=== PATIENT | male | born 1965 | race Caucasian/White ===

== ENCOUNTER → 2017-02-13 | Outpatient (CLI) | payer MEDICARE ==
[~2017-02-13] MED LIST: DEXI60CA2 PO; LIDOCAINE 2% MDV 20 ML VIAL As Ordered ONE; LISI-538 PO; NS 1,000 ML IV ONE; PROPOFOL 200 MG/20 ML VIAL As Ordered ONE
--- NOTE | 2017-02-13 15:11 | ROOR ---
Patient Name: Andrew Edgar Procedure Date: 02/13/2017 2:37 PM Date of : 1965 Age: 51 Room: [facility] Gender: Male Note Status: Finalized Procedure: Upper GI endoscopy Indications: Surveillance for malignancy due to personal history of Ng's esophagus Providers: Chris KONG MD Referring MD: DIANE CHANEY NP Requesting Provider: Medicines: Monitored Anesthesia Care Complications: No immediate complications. Procedure: Pre-Anesthesia Assessment: - The heart rate, respiratory rate, oxygen saturations, blood pressure, adequacy of pulmonary ventilation, and response to care were monitored throughout the procedure. The Endoscope was introduced through the mouth, and advanced to the second part of duodenum. The upper GI endoscopy was accomplished without difficulty. The patient tolerated the procedure well. Findings: There were esophageal mucosal changes secondary to established long-segment Ng's disease present in the lower third of the esophagus. The maximum longitudinal extent of these mucosal changes was 5 cm in length. This was biopsied with a cold forceps for histology. A medium-sized hiatal hernia was present. The exam of the stomach was otherwise normal. The examined duodenum was normal. Impression: - Esophageal mucosal changes secondary to established long-segment (5 cm) Ng's disease from 31 to 26 cm from incisors. Biopsied. - Medium-sized hiatal hernia. - Normal examined duodenum. Recommendation: - Telephone endoscopist for pathology results in 2 weeks. - Continue present medications. - Repeat upper endoscopy in 3 years for surveillance. Chris Kong MD Chris KONG MD 02/13/2017 3:11:08 PM This report has been signed electronically. Number of Addenda: 0 Note Initiated On: 02/13/2017 2:37 PM Estimated Blood Loss: Estimated blood loss: none.
--- NOTE | 2017-02-13 15:15 | ROOR ---
Patient Name: Andrew Edgar Procedure Date: 02/13/2017 2:38 PM Date of : 1965 Age: 51 Room: [facility] Gender: Male Note Status: Finalized Procedure: Colonoscopy Indications: High risk colon cancer surveillance: Personal history of colonic polyps, Last colonoscopy: March 2013 Providers: Chris KONG MD Referring MD: DIANE CHANEY NP Requesting Provider: Medicines: Monitored Anesthesia Care Complications: No immediate complications. Procedure: Pre-Anesthesia Assessment: - The heart rate, respiratory rate, oxygen saturations, blood pressure, adequacy of pulmonary ventilation, and response to care were monitored throughout the procedure. The Colonoscope was introduced through the anus and advanced to the cecum, identified by appendiceal orifice and ileocecal valve. The colonoscopy was performed without difficulty. The patient tolerated the procedure well. Findings: The perianal and digital rectal examinations were normal. A diminutive polyp was found in the cecum. The polyp was sessile. The polyp was removed with a cold snare. Resection and retrieval were complete. Internal hemorrhoids were found during retroflexion. The hemorrhoids were moderate. The exam was otherwise without abnormality. Impression: - One diminutive polyp in the cecum, removed with a cold snare. Resected and retrieved. - Internal hemorrhoids. - The examination was otherwise normal. Recommendation: - Repeat colonoscopy in 5 years for surveillance. - Telephone endoscopist for pathology results in 2 weeks. Chris Kong MD Chris KONG MD 02/13/2017 3:15:16 PM This report has been signed electronically. Number of Addenda: 0 Note Initiated On: 02/13/2017 2:38 PM Estimated Blood Loss: Estimated blood loss: none.
[2017-02-13 15:30] VITALS: BP 147/97
== END | disposition home or self-care (01) ==
LOC: M OPP 12:06
PROVIDERS: ATTEND Internal Medicine Gastroenterology
DX: Z12.11 Encounter for screening for malignant neoplasm of colon (principal); D12.0 Benign neoplasm of cecum; K64.8 Other hemorrhoids; Z86.010 Personal history of colon polyps; K22.70 Barrett's esophagus without dysplasia; K44.9 Diaphragmatic hernia without obstruction or gangrene; I10 Essential (primary) hypertension; Z80.9 Family history of malignant neoplasm, unspecified; Z79.899 Other long term (current) drug therapy

== ENCOUNTER → 2020-12-10 | Outpatient (CLI) | payer MEDICARE ==
[~2020-12-10] MED LIST changes: +DICL1GEL3 TP; -LIDOCAINE 2% MDV 20 ML VIAL As Ordered ONE; -LISI-538 PO; +LISI20TA33 PO; +NEXI40CA PO; -NS 1,000 ML IV ONE; -PROPOFOL 200 MG/20 ML VIAL As Ordered ONE
== END ==
LOC: M LABSMTC 09:12
PROVIDERS: ATTEND Anesthesiology
DX: Z20.828 Contact with and (suspected) exposure to other viral communicable diseases (principal); Z11.59 Encounter for screening for other viral diseases

== ENCOUNTER 2020-12-15 12:06 | Day surgery (SDC) | payer MEDICARE ==
[~2020-12-15] VITALS: Ht 175.3 cm; Wt 93.5 kg
[~2020-12-15 12:06] MED LIST changes: +NS 1,000 ML IV ONE
[2020-12-15] MEDS ORDERED: propofoL 200 MG/20 ML VIAL As Ordered ONE ×3 (13:26→13:54)
[2020-12-15] MEDS ORDERED: fentaNYL 100 MCG/2 ML INJECTION (J3010) As Ordered ONE (13:26)
[2020-12-15] MEDS ORDERED: LIDOCAINE 2% MDV 20ML VIAL As Ordered ONE (13:26)
--- NOTE | 2020-12-15 14:04 | ROOR ---
Patient Name: Andrew Edgar Procedure Date: 12/15/2020 1:39 PM Date of : 1965 Age: 54 Room: [facility] Gender: Male Note Status: Finalized Procedure: Upper GI endoscopy Indications: Surveillance for malignancy due to personal history of Ng's esophagus Providers: Chris Kong MD Referring MD: Jaxon Hammond Requesting Provider: Medicines: Monitored Anesthesia Care Complications: No immediate complications. Procedure: Pre-Anesthesia Assessment: - The heart rate, respiratory rate, oxygen saturations, blood pressure, adequacy of pulmonary ventilation, and response to care were monitored throughout the procedure. The Endoscope was introduced through the mouth, and advanced to the second part of duodenum. The upper GI endoscopy was accomplished without difficulty. The patient tolerated the procedure well. Findings: There were esophageal mucosal changes secondary to established long-segment Ng's disease present in the lower third of the esophagus. The maximum longitudinal extent of these mucosal changes was 5 cm in length. Mucosa was biopsied with a cold forceps for histology in 3 sections with 6 biopsies each from 27 to 31 cm from the incisors. A total of 3 specimen bottles were sent to pathology. A medium-sized hiatal hernia was present. The exam of the stomach was otherwise normal. The examined duodenum was normal. Impression: - Esophageal mucosal changes secondary to established 5 cm long-segment Ng's Esophagus. (Smooth, no nodularity). Biopsied. - Medium-sized hiatal hernia. - Normal examined duodenum. Recommendation: - Continue present medications. - Repeat upper endoscopy for surveillance based on pathology results. - (typically 3 years, if biopsies benign) - Telephone endoscopist for pathology results in 2 weeks. Procedure Code(s): --- Professional --- 87681, Esophagogastroduodenoscopy, flexible, transoral; with biopsy, single or multiple Diagnosis Code(s): --- Professional --- K44.9, Diaphragmatic hernia without obstruction or gangrene K22.70, Ng's esophagus without dysplasia CPT copyright 2019 [employer]. All rights reserved. The codes documented in this report are preliminary and upon twenty one dealer review may be revised to meet current compliance requirements. Chris Kong MD Chris Kong MD 12/15/2020 2:04:05 PM Electronically signed by Chris Kong MD Number of Addenda: 0 Note Initiated On: 12/15/2020 1:39 PM Estimated Blood Loss: Estimated blood loss: none.
[2020-12-15 14:20] VITALS: BP 117/65
== END 2020-12-15 14:28 | disposition home or self-care (01) ==
LOC: M OPP 12:06
PROVIDERS: ATTEND Internal Medicine Gastroenterology
DX: K44.9 Diaphragmatic hernia without obstruction or gangrene (principal); K22.70 Barrett's esophagus without dysplasia; K21.9 Gastro-esophageal reflux disease without esophagitis; Z79.899 Other long term (current) drug therapy
CPT/HCPCS: 43239; 88305; J3010

== ENCOUNTER 2023-04-15 09:57 | Day surgery (SDC) | payer MEDICARE, MEDICAID ==
[~2023-04-15] VITALS: Ht 175.3 cm; Wt 92.2 kg
[~2023-04-15 09:57] MED LIST changes: +DICL100G10 TP; -DICL1GEL3 TP; +NEUR300C PO; +VITMTA PO
[2023-04-15] MEDS ORDERED: LIDOCAINE 2% 100MG/5ML SDV (FOR ANES.) As Ordered ONE (10:47)
[2023-04-15] MEDS ORDERED: fentaNYL 100 MCG/2 ML INJECTION As Ordered ONE (10:47)
[2023-04-15] MEDS ORDERED: propofoL 500 MG/50 ML VIAL As Ordered ONE ×3 (10:47→11:34)
[2023-04-15] MEDS ORDERED: MIDAZOLAM INJ 2MG/2ML VIAL As Ordered ONE (11:39)
[2023-04-15 12:37] VITALS: BP 144/80; TEMP 96.4; O2SAT 99
== END 2023-04-15 12:39 | disposition home or self-care (01) ==
LOC: M OPP 09:57
PROVIDERS: ATTEND Internal Medicine Gastroenterology
DX: Z86.010 Personal history of colon polyps (principal); K63.5 Polyp of colon; K31.7 Polyp of stomach and duodenum; K22.70 Barrett's esophagus without dysplasia; K57.30 Diverticulosis of large intestine without perforation or abscess without bleeding; K64.8 Other hemorrhoids; K44.9 Diaphragmatic hernia without obstruction or gangrene; I10 Essential (primary) hypertension; K21.9 Gastro-esophageal reflux disease without esophagitis; M19.011 Primary osteoarthritis, right shoulder; M19.012 Primary osteoarthritis, left shoulder; Z79.899 Other long term (current) drug therapy; Z80.8 Family history of malignant neoplasm of other organs or systems; Z82.49 Family history of ischemic heart disease and other diseases of the circulatory system
CPT/HCPCS: 43239; 43251; 45385; 88305; J2250; J3010